=== PATIENT | male | born 1955 | race Caucasian/White ===

== ENCOUNTER → 2016-07-27 | Outpatient (CLI) | payer BC ==
[~2016-07-27] MED LIST: BENICAR; LORAZEPAM; LRT10T; PRILOSEC; PROPOXYPHENE; ZOLOFT
--- NOTE | 2016-07-27 10:16 | Diagnostic Imaging Report ---
INDICATION: Cough. Shortness of air. COMPARISON: 06/17/2014 FINDINGS: Frontal and lateral radiographic views of the chest were obtained and again demonstrate blunting of the lateral and posterior right costophrenic angles with prominence of the lateral and posterior pleura. Left lung is relatively clear. There is no large effusion on the left. No pneumothorax is seen on either side. Cardiac silhouette and pulmonary vasculature is stable. Bony structures show no acute change. IMPRESSION: 1. Stable exam of the chest showing prominence of the lateral and posterior right pleura with blunting of the costophrenic angles. Findings could be on the basis of chronic effusion or pleural thickening. 2. No acute adverse interval change. Dictated by: Dictated on workstation # [id number]
== END ==
LOC: RAD 10:00
PROVIDERS: ATTEND Internal Medicine
DX: R05 Cough (principal); R09.89 Other specified symptoms and signs involving the circulatory and respiratory systems
CPT/HCPCS: 71020

== ENCOUNTER → 2017-07-10 | Outpatient (CLI) | payer BC ==
[~2017-07-10] MED LIST changes: +AMLO10TA2 PO; +ASPI-808 PO; +FAMO20TA3 PO; +GADOBUTROL 10 MMOL/10 ML (GADAVIST) VIAL IV ONE; +HYDR12.56 PO; +LORA0.5T PO; +SERT50TA9 PO
--- NOTE | 2017-07-10 10:20 | Diagnostic Imaging Report ---
PROCEDURE: MR imaging of the brain with and without contrast. TECHNIQUE: Multiplanar, multisequence MR imaging of the brain was performed with and without contrast. INDICATION: Dizziness. Study is performed to evaluate for multiple sclerosis. No prior MRI brain study is available for comparison. FINDINGS: No diffusion restriction is identified to suggest acute ischemia. The normal expected flow-voids within the carotid siphons are seen. The ventricles and sulci are within normal limits. No significant periventricular white matter changes are identified to suggest a demyelinating process such as MS. There are occasional subcortical white matter foci noted, nonspecific but likely on the basis of chronic microvascular ischemia. No acute intra-axial or extra-axial hemorrhage is detected. Corpus callosum is unremarkable. The sella and parasellar structures are unremarkable. No abnormal enhancement is seen following contrast administration. IMPRESSION: Essentially unremarkable MRI of the brain with and without contrast. No evidence of multiple sclerosis is seen. Dictated by: Dictated on workstation # [id number]
== END ==
LOC: RAD 09:10
PROVIDERS: ATTEND Physician Assistant
DX: R42 Dizziness and giddiness (principal); Z86.69 Personal history of other diseases of the nervous system and sense organs
CPT/HCPCS: 70553

== ENCOUNTER 2017-07-14 05:49 | Outpatient (CLI) | payer BC ==
[~2017-07-14] VITALS: Ht 172.7 cm; Wt 86.2 kg
[~2017-07-14 05:49] MED LIST changes: -AMLO10TA2 PO; -ASPI-808 PO; -FAMO20TA3 PO; -GADOBUTROL 10 MMOL/10 ML (GADAVIST) VIAL IV ONE; -HYDR12.56 PO; -LORA0.5T PO; -SERT50TA9 PO
[2017-07-14] MEDS ORDERED: HYDR12.56 PO (11:48)
[2017-07-14] MEDS ORDERED: AMLO10TA2 PO (11:48)
[2017-07-14] MEDS ORDERED: LORA0.5T PO (11:48)
[2017-07-14] MEDS ORDERED: ASPI-808 PO (11:48)
[2017-07-14] MEDS ORDERED: FAMO20TA3 PO (11:48)
[2017-07-14] MEDS ORDERED: SERT50TA9 PO (11:48)
== END 2017-07-14 12:02 ==
LOC: PREOP 05:49
PROVIDERS: ATTEND Internal Medicine
DX: Z01.818 Encounter for other preprocedural examination (principal)

== ENCOUNTER 2017-07-21 07:40 | Day surgery (SDC) | payer BC ==
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
[~2017-07-21] VITALS: Ht 172.7 cm; Wt 86.2 kg
[~2017-07-21 07:40] MED LIST changes: +AMLO10TA2 PO; +ASPI-808 PO; +FAMO20TA3 PO; +HYDR12.56 PO; +LORA0.5T PO; +SERT50TA9 PO
--- OUTSIDE RECORDS SUMMARY | 2017-07-21 07:43 | XMS REPORT | Continuity of Care Document ---
Author Author [facility] Organization [facility] Address Unknown Phone Unavailable Allergies Active Description Code Type Severity Reaction Onset Reported/Identified Relationship to Patient Clinical Status Yes amoxicillin [id number] Drug Allergy Mild RASH 09/06/2006 Yes clavulanic acid [id number] Drug Allergy Mild RASH 09/06/2006 Medications There is no data. Problems Date Dx Coded Attending Type Code Diagnosis Diagnosed By 01/20/2014 KORIN CHÁVEZ MD Ot 721.0 01/20/2014 KORIN CHÁVEZ MD Ot 722.52 01/20/2014 KORIN CHÁVEZ MD Ot V58.69 02/17/2014 Ot 786.7 02/17/2014 CHIARA ORONA MD Ot 723.0 02/17/2014 CHIARA ORONA MD Ot 724.02 02/17/2014 KORIN CHÁVEZ MD Ot 721.0 02/17/2014 KORIN CHÁVEZ MD Ot 722.52 02/17/2014 KORIN CHÁVEZ MD Ot V58.69 03/17/2014 KORIN CHÁVEZ MD Ot 721.3 03/17/2014 KORIN CHÁVEZ MD Ot V58.69 06/20/2014 YENY OTERO END WORKER Ot 786.2 06/20/2014 YENY OTERO END WORKER Ot 786.7 07/07/2014 YENY OTERO END WORKER Ot 786.2 07/07/2014 YENY OTERO END WORKER Ot 786.7 07/27/2016 YENY OTERO END WORKER Ot 786.2 COUGH 07/27/2016 YENY OTERO END WORKER Ot 786.7 ABNORMAL CHEST SOUNDS 08/10/2016 CHANO MUHAMMAD MD Ot R05 COUGH 08/10/2016 CHANO MUHAMMAD MD Ot R09.89 OT SYMPTOMS AND SIGNS INVOLVING THE CIR 07/07/2017 YENY OTERO END WORKER Ot 786.2 COUGH 07/07/2017 YENY OTERO END WORKER Ot 786.7 ABNORMAL CHEST SOUNDS 07/07/2017 CHANO MUHAMMAD MD Ot R05 COUGH 07/07/2017 CHANO MUHAMMAD MD Ot R09.89 OTH SYMPTOMS AND SIGNS INVOLVING THE CIR 07/07/2017 YENY OTERO APRN Ot 786.2 COUGH 07/07/2017 YENY OTERO APRN Ot 786.7 ABNORMAL CHEST SOUNDS 07/07/2017 CHANO MUHAMMAD MD Ot R05 COUGH 07/07/2017 CHANO MUHAMMAD MD Ot R09.89 OTH SYMPTOMS AND SIGNS INVOLVING THE CIR 07/11/2017 NURA GARZA Ot R42 DIZZINESS AND GIDDINESS 07/11/2017 NURA GARZA Ot Z86.69 PERSONAL HISTORY OF DIS OF THE NERVOUS S 07/11/2017 NURA GARZA Ot R42 DIZZINESS AND GIDDINESS 07/11/2017 NURA GARZA Ot Z86.69 PERSONAL HISTORY OF DIS OF THE NERVOUS S 07/17/2017 JET NETTLES MD Ot Z01.818 ENCOUNTER FOR OTHER PREPROCEDURAL EXAMIN Procedures There is no data. Results There is no data. Encounters ACCT No. Visit Date/Time Discharge Status Pt. Type Provider Facility Loc./Unit Complaint [id number] 07/14/2017 05:49:00 07/14/2017 12:02:00 DIS Outpatient JET NETTLES MD [facility] PREOP COLONOSCOPY [id number] 07/10/2017 09:10:00 07/10/2017 23:59:59 CLS Outpatient NURA GARZA [facility] RAD DIZZINESS [id number] 07/27/2016 10:00:00 07/27/2016 23:59:59 CLS Outpatient CHANO MUHAMMAD MD [facility] RAD COUGH [id number] 06/17/2014 15:40:00 06/17/2014 23:59:59 CLS Outpatient YENY OTERO APRN [facility] RAD RALES R LOWER LOBE, CHRONIC COUGH [id number] 02/17/2014 12:16:00 02/17/2014 23:59:59 CLS Outpatient KORIN CHÁVEZ MD [facility] CARD [id number] 01/20/2014 14:50:00 01/20/2014 17:26:00 DIS Outpatient KORIN CHÁVEZ MD [facility] CARD [id number] 12/30/2013 15:21:00 12/30/2013 23:59:59 CLS Outpatient KORIN CHÁVEZ MD [facility] CARD [id number] 11/21/2013 12:36:00 11/21/2013 23:59:59 CLS Outpatient CHIARA ORONA MD [facility] RAD [id number] 07/21/2017 07:40:00 ACT Outpatient JET NETTLES MD [facility] ENDO SCREENING [id number] 12/04/2008 13:10:00 Document Registration [email or web address] 06/17/2014 15:41:00 ACT Document Registration
[2017-07-21] MEDS ORDERED: D5 LR IV SOLUTION 1,000 ML IV ONE (07:45)
[2017-07-21] MEDS ORDERED: D5 LR IV SOLUTION 1,000 ML IV STA (07:52)
--- NOTE | 2017-07-21 07:58 | Pre-Op Note & Conscious Sedat ---
Pre-Operative Progress Note H&P Reviewed The H&P was reviewed, patient examined and no changes noted. Date H&P Reviewed: July 21, 2017 Time H&P Reviewed: 07:58 Conscious Sedation Pre-Proced ASA Class: 2 Airway Mallampati Classification: ([place] appropriate class) I. II. III, IV Lungs Heart ASA score ASA 1: a normal healthy patient ASA 2: a patient with a mild systemic disease (mid diabetes, controlled hypertension, obesity ASA 3: a patient with a severe systemic disease that limits activity (angina , COPD, prior Myocardial infarction) ASA 4: a patient with an incapacitating disease that is a constant threat to life (CHF, renal failure) ASA 5: a moribund patient not expected to survive 24 hrs. (ruptured aneurysm) ASA 6: a declared brain patient whose organs are being harvested. For emergent operations, add the letter E after the classification Grade 3 Sedation Plan: Analgesia, Amnesia, Plan communicated to team members, Discussed options with patient/fam, Discussed risks with patient/fam Note The patient is an appropriate candidate to undergo the planned procedure, sedation, and anesthesia. The patient immediately re-assessed prior to indication. JET NETTLES MD July 21, 2017 07:58
[2017-07-21] MEDS ORDERED: LIDOCAINE JELLY 2% (XYLOCAINE) 5 ML TUBE MM PRN (08:00)
[2017-07-21] MEDS ORDERED: MIDAZOLAM 2 MG/2 ML (VERSED) VIAL IVP PRN (08:00)
[2017-07-21 08:02] VITALS: BP 100/70
[2017-07-21] MEDS ORDERED: fentaNYL INJECTION 100 MCG/2 ML AMP ONE (08:07)
[2017-07-21] MEDS ORDERED: LIDOCAINE JELLY 2% (XYLOCAINE) 5 ML TUBE ONE (08:07)
[2017-07-21] MEDS ORDERED: MIDAZOLAM 2 MG/2 ML (VERSED) VIAL ONE (08:07)
[2017-07-21] MEDS: fentaNYL INJECTION 100 MCG/2 ML AMP IVP PRN ×2 (08:36→08:39)
[2017-07-21 09:15] VITALS: BP 112/79
[2017-07-21 09:40] VITALS: BP 119/84
[2017-07-21 09:45] VITALS: BP 119/84
--- NOTE | 2017-07-21 19:43 | OPERATIVE REPORT ---
DATE OF SERVICE: 07/21/2017 COLONOSCOPY SUMMARY INDICATION FOR THE PROCEDURE: Screening. REFERRING PHYSICIAN: Ryan Lugo MD The patient is a 61-year-old white male referred for screening colonoscopy. Prior to colonoscopy, digital rectal evaluation was performed. Anal sphincter tone was normal and the perianal reflexes intact. Prostate is normal in size, anodular, nontender on digital inspection. No abnormalities were noted on digital inspection of the anal canal or distal rectal vault. The patient does have a prominent perianal fold with some scarring, likely due to an old hemorrhoid; however, there is no evidence for active internal or external hemorrhoids. The colonoscope was then inserted into the rectum under direct visualization advanced to the cecum. The cecum was identified by identification of the ileocecal valve, cecal strap and the appendiceal orifice. Photographic documentation was obtained. Careful inspection was made as the colonoscope was withdrawn. The patient tolerated the procedure well. FINDINGS: There was no evidence for internal or external hemorrhoids. The rectum was unremarkable. Present in the rectosigmoid junction were 2 small 4 mm sessile polyps with hyperplastic features. Photograph was obtained. Then, both polyps were biopsied, cauterized and submitted for histopathology. The sigmoid colon, descending colon, splenic flexure, transverse colon, hepatic flexure, ascending colon and cecum were normal with no evidence for diverticulum or neoplasia. ASSESSMENT: 1. Two diminutive sessile hyperplastic appearing polyps were noted at the rectosigmoid junction. Subsequently, biopsied and ablated with hot forceps with minimal blood loss. As long as there are no surprises on histopathology report, would advocate consideration for repeat screening colonoscopy at the age of 68 as the patient is not aware of any family history for colon cancer. 2. Prostate is unremarkable to digital inspection. 3. The patient does have either a skin tag or scarring from her previous external hemorrhoid, currently resolved with no evidence for active internal or external hemorrhoids. I thank you for the referral of this pleasant gentleman, reassured by today's findings. Job ID: [id number] DocumentID: [id number] Dictated Date: 07/21/2017 11:16:40 Retail Wireless Sales Consultant Date: 07/21/2017 19:42:43 Dictated By: JET NETTLES MD
== END 2017-07-21 09:45 | disposition home or self-care (01) ==
LOC: ENDO 07:40
PROVIDERS: ATTEND Internal Medicine
DX: Z12.11 Encounter for screening for malignant neoplasm of colon (principal); K63.5 Polyp of colon; I10 Essential (primary) hypertension; Z79.899 Other long term (current) drug therapy
CPT/HCPCS: 88305

== ENCOUNTER 2019-09-08 15:56 | Emergency (ER) | payer MEDICARE, OTHER ==
[~2019-09-08] VITALS: Ht 172.7 cm; Wt 86.1 kg
[~2019-09-08 15:56] MED LIST changes: -AMLO10TA2 PO; +AMLO10TA7 PO
[2019-09-08 16:00] VITALS: BP 132/86
[2019-09-08] MEDS ORDERED: CEPHALEXIN 250 MG (KEFLEX) CAP PO STA (17:49)
[2019-09-08] MEDS ORDERED: CEPH500T PO (17:52)
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
[2019-09-08] MEDS ORDERED: DEXAMETHASONE 10 MG/ML (DECADRON) 1 ML VIAL IM ONE (18:15)
== END 2019-09-08 18:29 | disposition home or self-care (01) ==
LOC: EDUNIT# 15:56 → ER 15:57
DX: S40.862A Insect bite (nonvenomous) of left upper arm, initial encounter (principal); L03.114 Cellulitis of left upper limb; Z87.891 Personal history of nicotine dependence; I10 Essential (primary) hypertension; M54.9 Dorsalgia, unspecified; M19.91 Primary osteoarthritis, unspecified site; W57.XXXA Bitten or stung by nonvenomous insect and other nonvenomous arthropods, initial encounter
CPT/HCPCS: 96372; 99283

== ENCOUNTER → 2019-10-31 | Outpatient (CLI) | payer MEDICARE, OTHER ==
[~2019-10-31] MED LIST changes: +CEPH500T PO
--- NOTE | 2019-10-31 14:57 | Diagnostic Imaging Report ---
INDICATION: Fall with persistent left knee pain. EXAMINATION: AP, oblique, lateral and sunrise views of the left knee are obtained. FINDINGS: AP image is somewhat limited due to rotation, however no definite fracture or malalignment is identified. There is no abnormal lytic or sclerotic focus. There is moderate amount of joint fluid present. IMPRESSION: Joint fluid which may represent effusion or hemarthrosis without definite acute abnormality identified. Dictated by: Dictated on workstation # [id number]
--- NOTE | 2019-10-31 15:03 | Diagnostic Imaging Report ---
INDICATION: Low back pain of one month's duration. FINDINGS: The lumbar body heights are maintained. The alignment shows grade 1 degenerative retrolisthesis of L3 on L4 but no acute-appearing abnormality. No suspicious endplate irregularity. There is degenerative disc space narrowing, endplate sclerosis, and osteophytes anteriorly as well as lower lumbar hypertrophic sclerotic facet arthrosis. IMPRESSION: Slight grade 1 degenerative retrolisthesis, multilevel spondylosis and facet arthrosis but no acute-appearing abnormality. Dictated by: Dictated on workstation # [id number]
--- NOTE | 2019-10-31 15:11 | Diagnostic Imaging Report ---
INDICATION: Chronic bilateral hand pain. TIME OF EXAM: 02:43 p.m. EXAMINATION: Multiple views of bilateral hands were obtained. FINDINGS: Metacarpals are intact. Phalanges appear intact. There are some generalized degenerative changes involving multiple MCP and interphalangeal joints bilaterally. No definite osseous erosive changes are identified. No fractures are seen. Carpus is unremarkable bilaterally. 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 No acute bony abnormality is detected. Dictated by: Dictated on workstation # [id number]
== END ==
LOC: RAD 13:56
PROVIDERS: ATTEND Physician Assistant
DX: M19.041 Primary osteoarthritis, right hand (principal); M19.042 Primary osteoarthritis, left hand; M25.462 Effusion, left knee; M47.816 Spondylosis without myelopathy or radiculopathy, lumbar region
CPT/HCPCS: 72100; 73564

== ENCOUNTER → 2019-11-12 | Outpatient (CLI) | payer MEDICARE, OTHER ==
--- NOTE | 2019-11-12 16:32 | Diagnostic Imaging Report ---
PROCEDURE: MRI lumbar spine. TECHNIQUE: Multiplanar, multisequence MRI of the lumbar spine was performed without contrast. INDICATION: Low back pain. COMPARISON: Radiographs from 10/31/2019. FINDINGS: The last well-formed disc space will be labeled L5-S1 for the purposes of this examination. Alignment is normal. Vertebral body heights are preserved. There is mild disc height loss at L3-L4 and L4-L5. Vertebral body heights are preserved. No acute fracture is seen. The soft tissues about the lumbar spine demonstrate no acute abnormality. There is a subtle focal ectasia in the distal aorta measuring 2.2 cm in diameter. T12-L1: No significant disc bulge. No spinal canal or foraminal stenosis. L1-L2: Minimal diffuse disc bulge. No spinal canal or foraminal stenosis. L2-L3: Diffuse disc bulge with mild facet arthropathy. No spinal canal stenosis. Mild right foraminal narrowing. L3-L4: Diffuse disc bulge and facet arthropathy. No spinal canal stenosis. There is mild bilateral foraminal narrowing. L4-L5: Diffuse disc bulge. Mild bilateral lateral recess narrowing. Mild bilateral foraminal narrowing. L5-S1: No significant disc bulge. No spinal canal or foraminal stenosis. IMPRESSION: 1. Mild degenerative changes in the lumbar spine. No high-grade spinal canal or foraminal stenosis. Dictated by: Dictated on workstation # [id number]
== END ==
LOC: RAD 14:59
PROVIDERS: ATTEND Physician Assistant
DX: M47.26 Other spondylosis with radiculopathy, lumbar region (principal)
CPT/HCPCS: 72148

== ENCOUNTER → 2021-09-17 | Outpatient (CLI) | payer MEDICARE, OTHER ==
[~2021-09-17] MED LIST changes: +AMLO-251 PO; -AMLO10TA7 PO; +SERT-413 PO; -SERT50TA9 PO
--- NOTE | 2021-09-17 09:45 | Diagnostic Imaging Report ---
PROCEDURE: US Hepatic (Liver). TECHNIQUE: Multiple real-time grayscale images were obtained over the right upper quadrant in various projections. INDICATION: Abnormal liver function tests. Liver is normal in size at 16.3 cm. The portal vein is patent and shows normal direction of flow. There is some increased echogenicity to the liver suggestive of hepatic steatosis. No discrete liver mass is identified. Gallbladder images are somewhat limited but no definite stones or sludge are seen. There is no wall thickening or biliary ductal dilatation. The pancreas, aorta and IVC were secured by bowel gas. Right kidney is unremarkable. There is no ascites. IMPRESSION: 1. Probable hepatic steatosis. 2. No definite evidence of cholelithiasis or acute cholecystitis. Overall study was somewhat limited due to overlying bowel gas. Dictated by: Dictated on workstation # [id number]
== END ==
LOC: RAD 08:03
PROVIDERS: ATTEND Physician Assistant
DX: R94.5 Abnormal results of liver function studies (principal)
CPT/HCPCS: 76705

== ENCOUNTER → 2022-06-30 | Outpatient (CLI) | payer MEDICARE, OTHER | LOC: CARD 13:53 | PROVIDERS: ATTEND Internal Medicine Cardiovascular Disease | DX: I35.1 Nonrheumatic aortic (valve) insufficiency (principal); I10 Essential (primary) hypertension; I25.10 Atherosclerotic heart disease of native coronary artery without angina pectoris; R06.09 Other forms of dyspnea | CPT/HCPCS: 93306 ==

== ENCOUNTER → 2022-07-20 | Outpatient (CLI) | payer MEDICARE, OTHER ==
[~2022-07-20] MED LIST changes: +CATHETER FLUSH 10 ML SYR IVP PRN
[2022-07-20 13:44] VITALS: BP 144/88
--- NOTE | 2022-07-20 15:48 | Cardiology Stress Test Report ---
Stress Test Report Date of Procedure/Referring: Date of Procedure: July 20, 2022 PCP Chano Muhammad MD Admitting Physician Admitting Physician: Attending Physician: An Ojeda MD Baseline Heart Rate: 87 Baseline Blood Pressure: Blood Pressure Systolic: 144 Blood Pressure Diastolic: 88 Vital Signs Date Time Temp Pulse Resp B/P (MAP) Pulse Ox O2 Delivery O2 Flow Rate FiO2 07/20/22 13:44 87 144/88 (106) Baseline Vital Signs Vital Signs Date Time Temp Pulse Resp B/P (MAP) Pulse Ox O2 Delivery O2 Flow Rate FiO2 07/20/22 13:44 87 144/88 (106) Baseline EKG: Baseline EKG: NSR Summary: After explaining the procedure and details to the patient, he signed the consent and was brought to the stress nuclear laboratory. Patient exercised on standard Jevon protocol, EKG, heart rate and blood pressure were monitored continuously, resting and stress doses of radio tracer were injected, imaging was acquired and reviewed in the short axis, horizontal long axis and vertical long axis views Patient was able to exercise for a total of 3 minutes on Jevon protocol, METs 3.8 Maximum heart rate 145 Maximum blood pressure 199/93 Stress EKG, Minimal nondiagnostic changes Recovery EKG, Return to baseline TID: 1.19 SSS: 7 SDS: 2 EF: 55 Conclusion: Fair exercise tolerance for 3 minutes on standard Jevon protocol 3.8 METS achieving 95% of maximal expected heart rate Frequent PVCs noted at peak exercise level with nondiagnostic EKG changes Hypertensive response to exercise with peak blood pressure 199/93 return to baseline during recovery Diaphragmatic attenuation with reversible ischemia involving the mid to apical inferior wall Normal left ventricular size, ejection fraction 55% Copy Copies To 1: CHANO MUHAMMAD MD, BASHAR J MD July 20, 2022 15:48
== END ==
LOC: CARD 12:09
PROVIDERS: ATTEND Internal Medicine Cardiovascular Disease
DX: R06.09 Other forms of dyspnea (principal)
CPT/HCPCS: 78452; 93017; A9502

== ENCOUNTER 2022-08-03 08:38 | Day surgery (SDC) | payer MEDICARE, OTHER ==
[2022-08-03] VITALS (11 sets, daily range): BP systolic 104–140; BP diastolic 65–86
[~2022-08-03] VITALS: Ht 172.7 cm; Wt 84.5 kg
[~2022-08-03 08:38] MED LIST changes: -CATHETER FLUSH 10 ML SYR IVP PRN
[2022-08-03] MEDS ORDERED: NS IV 1000 ML 1,000 ML IV SCH ×3 (08:45→10:30)
[2022-08-03] MEDS ORDERED: NS IV 1000 ML 1,000 ML ONE (08:46)
[2022-08-03] MEDS ORDERED: LIDOCAINE 1% INJ 20 ML VIAL ONE ×2 (08:46→10:08)
[2022-08-03] MEDS ORDERED: HEParin (CATH LAB) 2,000 ML IV ONE (08:48)
[2022-08-03 09:14] LABS: HEMATOCRIT 33 % (40-54); MEAN CORPUSCULAR HEMOGLOBIN 23 pg (25-34); MEAN CORPUSCULAR HGB CONC 30 g/dL (32-36); MEAN CORPUSCULAR VOLUME 76 fL (80-99); MEAN PLATELET VOLUME 9.9 fL (9.0-12.2); PLATELET COUNT 454 10^3/uL (130-400); WHITE BLOOD COUNT 8.6 10^3/uL (4.3-11.0)
--- NOTE | 2022-08-03 09:14 | Diagnostic Imaging Report ---
Indication: Hypertensive patient with diabetes with abnormal stress study complaining of shortness of breath. Compared with radiograph 07/27/2016. Findings: Chronic right pleural effusion and/or pleural thickening. There is unchanged heart size upper limits but unchanged. No vascular congestion, edema, pneumonia or pneumothorax. No new abnormality. Impression: Stable chronic blunting of the right ankle from chronic pleural fluid and/or pleural thickening. This is stable, no acute finding. Dictated by: Dictated on workstation # [id number]
[2022-08-03 09:26] LABS: ALBUMIN 4.2 GM/DL (3.2-4.5); POTASSIUM 3.6 MMOL/L (3.6-5.0)
[2022-08-03 09:27] LABS: CALCIUM 9.7 MG/DL (8.5-10.1)
[2022-08-03 09:30] LABS: BILIRUBIN,TOTAL 0.3 MG/DL (0.1-1.0)
[2022-08-03 09:32] LABS: CREATININE SERUM 1.04 MG/DL (0.60-1.30)
[2022-08-03 09:33] LABS: PROTHROMBIN TIME PATIENT 13.2 SEC (12.2-14.7)
[2022-08-03] MEDS ORDERED: fentaNYL INJ 100 MCG/2 ML AMP ONE (09:33)
[2022-08-03] MEDS ORDERED: VERAPAMIL 5 MG/2 ML (CALAN) VIAL IV ONE (09:33)
[2022-08-03] MEDS ORDERED: MIDAZOLAM 5 MG/5 ML (VERSED) VIAL ONE (09:33)
[2022-08-03] MEDS ORDERED: NITRO DRIP 25000 MCG/D5W 250 ML IV ONE (09:34)
[2022-08-03] MEDS ORDERED: HEParin 1000 UNIT/ML (10ML VIAL) FOR BOLUS ONE (09:34)
[2022-08-03] MEDS ORDERED: LORA-404 PO (09:37)
[2022-08-03] MEDS ORDERED: ASPI-1238 PO (09:37)
[2022-08-03] MEDS ORDERED: DULO30CA49 PO (09:37)
[2022-08-03] MEDS ORDERED: GABA300C PO (09:37)
[2022-08-03] MEDS ORDERED: OMEP40CA6 PO (09:37)
[2022-08-03] MEDS ORDERED: METF-399 PO ×2 (09:37→10:25)
[2022-08-03] MEDS ORDERED: ACET325T38 PO (09:37)
[2022-08-03] MEDS ORDERED: ATOR10TA66 PO (09:37)
[2022-08-03] MEDS ORDERED: DIPH25TA31 PO (09:37)
[2022-08-03] MEDS ORDERED: PRED5DRO24 OP (09:37)
[2022-08-03] MEDS ORDERED: LOSA25TA41 PO (09:37)
[2022-08-03] MEDS ORDERED: HYDR12.56 PO (09:37)
--- NOTE | 2022-08-03 10:26 | Discharge Inst-Post CATH ---
Discharge Inst-CATH/EP Problems Reviewed?: Yes Post Cardiac Cath/EP D/C Inst Follow Up/Plan Hold Metformin for [address] Ojeda in 2-4 weeks <b>CARDIAC CATH/EP PROCEDURE DISCHARGE INSTRUCTIONS</b> ACTIVITY * Go Home directly and rest. * Limit activity of the leg (or wrist if it was used) for 7 days including aerobics, swimming, jogging, bicycling, etc. * Restrict stair-climbing for 7 days if possible, if not, climb up with your non-cath leg, then bring together on the same step. * Avoid lifting, pushing, pulling or excessive movement of the affected extremity for 7 days. * Customary sexual activity may be resumed after 2 days-use caution not to use a position that strains or causes pain to the affected extremity. * No driving for 24 hours. * NO SMOKING. * Avoid straining for bowel movements for 7 days. * Gentle walking on level ground is allowed. * Returning to work will depend on the type of procedure and the results. Your doctor will discuss this with you. CALL YOUR DOCTOR FOR ANY OF THE FOLLOWING: *If bleeding from the puncture site occurs- Apply gentle pressure to site with clean cloth and call your doctor or EMS. * If a knot or lump forms under the skin, increases in size, or causes pain. * If bruising appears to be worsening or moving further down your leg instead of disappearing. * Temperature above 101 F. CARE OF YOUR GROIN INCISION; * Bruising or purple discoloration of the skin near the puncture site is common. * You may shower only, no bathtub bathing for 5 days. Be careful to avoid slipping as your leg may feel stiff. * If a closure device was used on your femoral artery, please see the attached guide regarding care of the device and your leg. * Leave dressing on FOR 24 hours. CARE OF YOUR WRIST INCISION; * Bruising or purple discoloration of the skin near the puncture site is common. * You may shower. * DO NOT submerge wrist. * Leave dressing on FOR 24 hours. SANDEEP OJEDA MD August 03, 2022 10:26
[2022-08-03] MEDS ORDERED: PATIENT MAY USE OWN MEDS, ALL PO SCH (10:30)
--- NOTE | 2022-08-03 10:31 | Cardiac Cath Report ---
Cardiac Cath Report Physician (s)/Supervisor [employer] (s) Physician SANDEEP LEWIS MD Pre-Procedure Diagnosis Pre-Procedure Diagnosis: Coronary artery disease Post-Procedure Note Procedure Start Date: August 03, 2022 Name of Procedure: Left heart catheterization Aortic root angiogram Aortic arch angiogram Findings/Procedure Note PROCEDURE NOTE: 66-year-old gentleman with history of hypertension, hyperlipidemia, has been having chest pain, had an abnormal stress test, scheduled for cardiac catheterization possible PTCA. After explaining the procedure to the patient, all pros and cons were explained, all questions were answered. The patient signed the consent and then he was placed in the cardiac catheterization laboratory. Groin was prepped in SL fashion local anesthesia was used. Sheath placed in the right radial artery, I was unable to advance the wire through the brachiocephalic artery, significant tortuosity. I tried with baby J-wire and Storq wire and a J-wire without success. Sheath was placed in the right femoral artery. Ed' right and left catheter were used to access the coronary system. Ed right was prolapsed to the left ventricular cavity, pressure was measured, pullback LV to aorta was done. No left ventriculogram was done then I pulled the catheter back to the ascending aorta and did aortic root angiogram then pulled it back to the aortic arch and did aortic arch angiogram At the end of the procedure the sheath was removed. Closure device was deployed to the groin and vascular band to the wrist FINDINGS: Hemodynamics LV 107/15, end-diastolic pressure 15 Aorta 107/69 mean of 83 ANATOMY: Left Main is free of obstructive disease Left Anterior Descending has mild diffuse ectasia with no obstructive disease Left Circumflex has mild ectasia with no obstructive disease Right Coronary Artery nondominant artery with diffuse ectasia nonobstructive disease LV Gram was not done, pressure was measured Ascending aorta/aortic root angiogram was done showing dilated ascending aorta, no dissection was noted Aortic arch angiogram showed dilated aortic arch, tortuous brachiocephalic artery but patent, normal left carotid and left subclavian arteries CONCLUSION: Diffuse coronary ectasia with no obstructive disease Normal left ventricular end-diastolic pressure Dilated ascending aorta, recommend evaluating CT angiogram 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 No intervention is warranted Anesthesia Type: Conscious Sedation Estimated blood loss (mL): 30 ml Contrast Amount: 83 ml Total Radiation Dose: 480 mGy Post-Procedure Diagnosis Post-operative diagnosis: Coronary artery disease Hypertension Hyperlipidemia Chest pain SANDEEP LEWIS MD August 03, 2022 10:31
== END 2022-08-03 15:00 ==
LOC: CATH 08:38 → SDC 10:47 → CATH 15:00
PROVIDERS: ATTEND Internal Medicine Cardiovascular Disease
DX: I25.10 Atherosclerotic heart disease of native coronary artery without angina pectoris (principal); I10 Essential (primary) hypertension; I65.23 Occlusion and stenosis of bilateral carotid arteries; E11.9 Type 2 diabetes mellitus without complications; K21.9 Gastro-esophageal reflux disease without esophagitis; E78.2 Mixed hyperlipidemia; Z87.891 Personal history of nicotine dependence; Z79.899 Other long term (current) drug therapy; Z79.84 Long term (current) use of oral hypoglycemic drugs
CPT/HCPCS: 36221; 71045; 80053; 80061; 85027; 85610; 85730; 87081; 93005; 93458; 93567; C1760; C1769 ×2; C1894; 36415

== ENCOUNTER → 2022-08-30 | Outpatient (CLI) | payer MEDICARE, OTHER ==
[~2022-08-30] MED LIST changes: +ACET325T38 PO; +ASPI-1238 PO; +ATOR10TA66 PO; +DIPH25TA31 PO; +DULO30CA49 PO; +GABA300C PO; +LORA-404 PO; +LOSA25TA41 PO; +METF-399 PO; +OMEP40CA6 PO; +PRED5DRO24 OP
[2022-08-30 15:56] LABS: ABSOLUTE RETIC # 73 10e9/uL (24-90); BASOPHILS # (AUTO) 0.1 10^3/uL (0.0-0.1); BASOPHILS % (AUTO) 1 % (0-10); EOSINOPHILS # (AUTO) 0.1 10^3/uL (0.0-0.3); EOSINOPHILS % (AUTO) 2 % (0-10); HEMATOCRIT 34 % (40-54); HEMOGLOBIN 10.3 g/dL (13.3-17.7); LYMPHOCYTES # (AUTO) 1.7 10^3/uL (1.0-4.0); LYMPHOCYTES % (AUTO) 23 % (12-44); MEAN CORPUSCULAR HEMOGLOBIN 23 pg (25-34); MEAN CORPUSCULAR HGB CONC 30 g/dL (32-36); MEAN CORPUSCULAR VOLUME 76 fL (80-99); MEAN PLATELET VOLUME 9.7 fL (9.0-12.2); MONOCYTES # (AUTO) 0.6 10^3/uL (0.0-1.0); MONOCYTES % (AUTO) 8 % (0-12); NEUTROPHILS # (AUTO) 4.7 10^3/uL (1.8-7.8); NEUTROPHILS % (AUTO) 65 % (42-75); PLATELET COUNT 384 10^3/uL (130-400); RETICULOCYTE % 1.63 % (0.50-2.40); WHITE BLOOD COUNT 7.3 10^3/uL (4.3-11.0)
== END ==
LOC: LAB 15:27
PROVIDERS: ATTEND Internal Medicine
DX: D50.9 Iron deficiency anemia, unspecified (principal); E11.9 Type 2 diabetes mellitus without complications; I10 Essential (primary) hypertension; E78.2 Mixed hyperlipidemia
CPT/HCPCS: 36415; 82607; 82728; 82746; 83540; 83550; 85025; 85045

== ENCOUNTER 2022-11-09 10:18 | Outpatient (RCR) | payer MEDICARE, OTHER ==
[2022-11-02 10:40] VITALS: BP 145/62
[2022-11-02] MEDS: FERRIC CARBOXYMALTOSE INJ 750 MG in NS (IVPB) 250 ML 250 ML IV SCH (10:57)
[~2022-11-09] VITALS: Wt 84.5 kg
[2022-11-09] MEDS: FERRIC CARBOXYMALTOSE INJ 750 MG in NS (IVPB) 250 ML 250 ML IV SCH (10:34)
[2022-11-09 10:38] VITALS: BP 135/79
== END 2022-11-09 11:05 | disposition home or self-care (01) ==
LOC: SDC 10:18
PROVIDERS: ATTEND Internal Medicine
DX: D64.9 Anemia, unspecified (principal)
CPT/HCPCS: 96365